=== PATIENT | female | born 1930 | race Two or more races ===

== ENCOUNTER 2019-01-15 18:47 | Inpatient (IN) | payer MEDICARE, MEDICAID ==
[~2019-01-15] VITALS: Ht 165.1 cm; Wt 49.0 kg
[2019-01-15] MEDS ORDERED: OLANZAPINE 10 MG VIAL IM ONE ×2 (19:00→19:12)
--- NOTE | 2019-01-15 19:00 | NUR ---
Medically cleared by DR Glover
--- NOTE | 2019-01-15 19:09 | NUR ---
hands off report given to incoming rn.
[2019-01-15] MEDS ORDERED: CARV3.12 PO (19:12)
[2019-01-15] MEDS ORDERED: ESCI20TA PO (19:12)
--- NOTE | 2019-01-15 19:37 | NUR ---
Patient sleeping on gurny with no distress noted
--- NOTE | 2019-01-15 19:44 | NUR ---
Patient trasnported to [facility]HU in stable condition. Report given to HOANG Yu
[2019-01-15] MEDS ORDERED: LORAZEPAM 1 MG TABLET PO PRN (20:00)
[2019-01-15] MEDS ORDERED: TEMAZEPAM 7.5 MG CAPSULE PO PRN (20:00)
[2019-01-15] MEDS ORDERED: MAGNESIUM HYDROXIDE 30 ML LIQUID UDC PO PRN (20:00)
[2019-01-15] MEDS ORDERED: MAG HYDROX/AL HYDROX/SIMETH 30 ML LIQUID UDC PO PRN (20:00)
[2019-01-15] MEDS ORDERED: ACETAMINOPHEN 325 MG TABLET PO PRN (20:00)
--- NOTE | 2019-01-15 20:15 | NUR ---
Dr Martin You paged through [facility] regarding elevated BP and medication reconciliation. Awaiting call back.
--- NOTE | 2019-01-15 21:06 | NUR ---
Dr You paged again through [facility] regarding Pt's elevated BP and med recon. Awaiting response.
[2019-01-15] MEDS ORDERED: CLONIDINE TTS 2 PATCH TD SCH (21:25)
[2019-01-15] MEDS ORDERED: CLONIDINE TTS 2 PATCH TD ONE (22:23)
--- NOTE | 2019-01-15 23:53 | NUR ---
Admission note: Received patient earlier from the ED dept. Via gurney. Asleep but easily aroused. Patients initial B/P was elevated at that time. MD was notified and orders received for medication. After delivery of medication, patients B/P upon recheck is 126/64. Patient is in bed sleeping. No acute distress noted at this time. Patient is confused and being monitored closely for safety. No acting out or non compliance observed .
[2019-01-16 07:30] VITALS: BP 146/67
[2019-01-16 15:30] VITALS: BP 132/55
[2019-01-16] MEDS: CARVEDILOL 3.125 MG TABLET PO SCH (17:08)
--- NOTE | 2019-01-16 17:25 | NUR ---
GPS: RECEIVED PATIENT AOX1, PATIENT CALM AND COOPERATIVE, IN NO DISTRESS AT THIS TIME, SEEN CRYING IN HER ROOM, REDIRECT PATIENTS ATTENTION, AND PATIENT STARTED TO CALM DOWN, SEEN AND EXAMINED BY DR. GILLESPIE WITH ORDERS MADE AND CARRIED OUT, WILL CONTINUE TO MONITOR
[2019-01-16 20:23] VITALS: BP 167/67
[2019-01-16] MEDS: QUETIAPINE FUMARATE 25 MG TABLET PO SCH (20:44)
[2019-01-16] MEDS: CEphaleXIN 500 MG CAPSULE PO SCH (22:07)
[2019-01-17] MEDS: CEphaleXIN 500 MG CAPSULE PO SCH ×3 (06:13→21:42)
[2019-01-17 07:30] VITALS: BP 196/98
[2019-01-17] MEDS: CARVEDILOL 3.125 MG TABLET PO SCH ×2 (08:00→18:00)
[2019-01-17] MEDS: ESCITALOPRAM OXALATE 10 MG TABLET PO SCH (09:00)
[2019-01-17 11:52] VITALS: BP 174/83
--- NOTE | 2019-01-17 12:30 | NUR ---
Gps/Wool Sampler- Patients' grandchildren in to visit patient, informed patient continues refusal of her routine medications prescribed.Per family patient verbalized paranoia. Meds reoffered in front of the of her family, reviewed one by one, patient still refused, and verbalized anger with angry tone of voice in Japanese. Per grand daughter pt. was taking "clonopin " before and it seems like helping her.
--- NOTE | 2019-01-17 18:49 | NUR ---
Gps/Delivery Department Supervisor- Patient continue to refused routine medications prescribed, re offered couple of times ,pt. refused, claimed will not take any medications from from us. Informed family patient continued to refused medications.
[2019-01-17 20:00] VITALS: BP 233/92
[2019-01-17] MEDS ORDERED: CLONIDINE TTS 2 PATCH TD SCH (20:00)
--- NOTE | 2019-01-17 20:15 | NUR ---
RECEIVED PATIENT IN HER ROOM IN BED. SHE IS NOTED AWAKE, A/O X 3. SHE IS NOTED WITH LOW MOOD, WITHDRAWN, DELUSIONAL, FORGETFUL. IMPAIRED INSIGHT AND JUDGMENT IS NOTED TO THE REASON FOR HER ADMISSION TO MHU. SHE IS NOTED CRYING, SHE STATED, "I KNOW MYLENE IS , WHY SHE HAD TO , I DID NOT WANT HER TO . WHY SHE IS GONE". PATIENT WAS REASSURED AND REDIRECTED. IT WAS ALSO NOTED THAT HER BLOOD PRESSURED IS 200/90MMHG. ACCORDING TO MAYRA, PATIENT WAS GIVEN CATAPRES PATCH 2 DAYS AGO; HOWEVER, AFTER A HEAD TO TOE ASSESSMENT, NO PATCH WAS FOUND ON HER BODY. NEW PATCH CATAPRES 0.2MG TOPICAL WAS APPLIED ON HER RIGHT DELTOID. PATIENT WAS REASSURED FOR HER SAFETY. SAFETY AND FALL PRECAUTION ARE IN PLACE. WILL CONTINUE TO MONITOR.
[2019-01-17] MEDS: QUETIAPINE FUMARATE 25 MG TABLET PO SCH (21:42)
[2019-01-17 21:45] VITALS: BP 140/80
--- NOTE | 2019-01-17 22:00 | NUR ---
PATIENT B/P IS 130/84MMHG AND PULSE 64. PT IS IN NO DISTRESS, RESTING COMFORTABLE IN HER ROOM IN BED. WILL CONTINUE TO MONITOR.
[2019-01-18 00:30] VITALS: BP 130/84
[2019-01-18] MEDS: CEphaleXIN 500 MG CAPSULE PO SCH ×3 (06:50→22:21)
[2019-01-18] MEDS: CARVEDILOL 3.125 MG TABLET PO SCH ×2 (08:00→18:00)
[2019-01-18] MEDS: ESCITALOPRAM OXALATE 10 MG TABLET PO SCH (08:56)
--- NOTE | 2019-01-18 13:00 | NUR ---
Gps/Cherry Picker Operator- Patients' daughter and grandson in to vist, requesting possibility to talk to Cement Mason Helper , and wants to attend the Court hearing whenever possible.
--- NOTE | 2019-01-18 17:00 | NUR ---
Gps/Desk Clerks Supervisor-Patient took pm routine seroquel 25 mg po, but refused coreg., unable to administer anyways pt. was refusing vital signs check(B/P)
[2019-01-18] MEDS: QUETIAPINE FUMARATE 25 MG TABLET PO SCH (18:09)
[2019-01-18 20:00] VITALS: BP 196/83
[2019-01-18 23:51] VITALS: BP 132/80
[2019-01-19] MEDS: CEphaleXIN 500 MG CAPSULE PO SCH ×3 (06:00→22:00)
[2019-01-19] MEDS: CARVEDILOL 3.125 MG TABLET PO SCH ×2 (08:00→17:43)
[2019-01-19] MEDS: QUETIAPINE FUMARATE 25 MG TABLET PO SCH ×3 (09:00→17:32)
[2019-01-19] MEDS: ESCITALOPRAM OXALATE 10 MG TABLET PO SCH (09:00)
--- NOTE | 2019-01-19 20:00 | NUR ---
RECEIVE PATIENT IN HER ROOM IN BED, SHE IS NOTED AWAKE A/O X 2. UKRAINIAN SPEAKER. SHE IS ABLE TO AMBULATE WITH STEADY GAIT AND ABLE TO MAKE HER NEEDS KNOWN. SHE IS NOTED EASILY IRRITABLE, TANGENTAL, GUARDED, UNCOOPERATIVE AND REFUSING V/S. MULTIPLE REDIRECTION GIVEN; HOWEVER, INEFFECTIVE. PATIENT IS REASSURE FOR HER SAFETY. SAFETY AND FALL PRECAUTION ARE IN PLACE. WILL CONTINUE TO MONITOR.
--- NOTE | 2019-01-19 22:00 | NUR ---
PATIENT IS REFUSING KEFLEX 500MG. SHE ALSO CONTINUE REFUSING V/S SHE IS NOTED IRRITABLE, GUARDED AND SUSPICIOUS. SHE ASKED FOR TYLENOL FOR LOWER BACK PAIN; HOWEVER, WHEN MEDICATION WAS PRESENTED TO HER SHE STATED, "NO, THAT IS NOT TYLENOL, I DON'T WANT THAT MEDICATION, YOU WANT TO GIVEN ME SOMETHING ELSE!!!" THEN PATIENT THREW THE PILLS ON THE FLOOR. PATIENT WAS REDIRECTED. PT WAS EXPLAINED BENEFITS VS RISK OF MEDICATION AND THE IMPORTANCE TO COMPLY WITH MEDICATION REGIMENT. HOWEVER, SHE REFUSED TYLENOL, V/S AND KEFLEX. WILL CONTINUE TO MONITOR.
[2019-01-20] MEDS: CEphaleXIN 500 MG CAPSULE PO SCH ×3 (06:00→21:21)
--- NOTE | 2019-01-20 07:02 | NUR ---
PATIENT SLEPT FOR APPROX 7.0 HRS THROUGH THE NIGHT. SHE REFUSED KEFLEX, SHE REFUSED BLOOD DRAWN. SHE TOOK HER CATAPRES PATCH OFF AND REFUSED TO PUT IT BACK. SHE IS NOTED EASILY IRRITABLE, DEMANDING, TANGENTIAL, ARGUMENTATIVE. MULTIPLE REDIRECTION GIVEN. BENEFITS VS RISK OF MEDICATION COMPLIANT WERE GIVEN BUT CONTINUE REFUSING. WILL CONTINUE TO MONITOR.
[2019-01-20] MEDS: CARVEDILOL 3.125 MG TABLET PO SCH ×2 (08:00→17:47)
[2019-01-20] MEDS: QUETIAPINE FUMARATE 25 MG TABLET PO SCH ×2 (08:52→17:46)
[2019-01-20] MEDS: ESCITALOPRAM OXALATE 10 MG TABLET PO SCH (08:55)
--- NOTE | 2019-01-20 09:51 | NUR ---
Gps/Senior Hardware Engineer- Refused to take routine am meds. except seroquel, making sign of the cross before taking med. Easily gets upset/irritability noted. Encouraged to attend her group therapy. Ambulates around , suspicious /paranoid behavior.
--- NOTE | 2019-01-20 18:15 | NUR ---
Gps/Commercial Fisher-Called [facility] Pharmacist, clarified on what to do w/ TTS patch fell off, found on the floor by Noc. Nurse. assigned to patient. Per Dariana Shaw STRE[address] LIGHT CLEANER needed to check with Pharmacy as to when to apply patch .
[2019-01-20] MEDS: CLONIDINE TTS 2 PATCH TD SCH (18:30)
--- NOTE | 2019-01-20 21:22 | NUR ---
Several attempts to convinced patient to have her BP checked failed for the administration of Catapres patch and routine VS. Refused medications due as well. Charge nurse aware.
[2019-01-21] MEDS: CEphaleXIN 500 MG CAPSULE PO SCH ×2 (06:00→14:00)
--- NOTE | 2019-01-21 06:43 | NUR ---
Patient very uncooperaive with care. Continue to refused to have her BP checked and oral medications. Cataprest patch not given as ordered. No BP reading done. Patient kept refusing to have it despite explaining the risk and benefits. Incontinent of bladder but ambulatory to the BR when she feel like it. No complaint of pain/dsiscomforts. No significant event reported all night. Continue current plan of care.
[2019-01-21] MEDS: CARVEDILOL 3.125 MG TABLET PO SCH ×2 (08:00→18:00)
[2019-01-21] MEDS: ESCITALOPRAM OXALATE 10 MG TABLET PO SCH (09:00)
[2019-01-21] MEDS: QUETIAPINE FUMARATE 25 MG TABLET PO SCH ×2 (09:00→17:00)
[2019-01-21] MEDS ORDERED: CLONIDINE HCL 0.1 MG TABLET PO PRN (13:00)
[2019-01-22] MEDS: CARVEDILOL 3.125 MG TABLET PO SCH ×2 (08:00→17:10)
[2019-01-22] MEDS: QUETIAPINE FUMARATE 25 MG TABLET PO SCH ×3 (08:59→17:09)
[2019-01-22] MEDS: ESCITALOPRAM OXALATE 10 MG TABLET PO SCH (08:59)
--- NOTE | 2019-01-22 17:52 | NUR ---
GPS: received patient alert oriented x1, patient confused ,calm in her room, however refused oral medication, patient also refused her vital sign, denies pain, and seen eating her meal seen and examined by Dr. Rodriguez, family visit during lunch time, tried giving her oral medication, patient refused even after explaining the benefits of the medication, will continue monitor
[2019-01-23] MEDS: QUETIAPINE FUMARATE 25 MG TABLET PO SCH ×2 (09:00→17:00)
[2019-01-23] MEDS: ESCITALOPRAM OXALATE 10 MG TABLET PO SCH (09:00)
[2019-01-23] MEDS: CARVEDILOL 3.125 MG TABLET PO SCH ×2 (09:00→18:00)
--- NOTE | 2019-01-23 13:08 | NUR ---
Appeal Discussion with Family SW informed Grandson Calixto [[phone]] of appeal rights and provided with information for [place] [[employer] Appeals;[phone]] due to Dr. Rodriguez anticipating likely discharge for patient on Monday, and Calixto not in favor of discharge.
--- NOTE | 2019-01-23 16:20 | NUR ---
FIREARMS REPORT: Operations Support Professionals completed and submitted a [employer] firearms report for [address] Disability certification. A copy of report has been placed in patient chart.
--- NOTE | 2019-01-23 17:04 | NUR ---
gps: received patient aox1, sitting in her room, isolative and withdrawn, patient increasingly paranoid,refused all her oral medication, MD and resp. republican aware, patient seen crying in her room, offered medication and educated patient regarding the benefits of her medication, patient still refused her medication, patient granddarvin king visited during lunch time, offered meds , patient still refused , [place] petition was filed to court, patient made aware, will continue monitor patient
--- NOTE | 2019-01-24 06:19 | NUR ---
Patient refused shower this am. Patient also is refusing staff to take any VS. Patient slept 7 hours last night.
[2019-01-24] MEDS: CARVEDILOL 3.125 MG TABLET PO SCH ×2 (08:00→18:00)
[2019-01-24] MEDS: ESCITALOPRAM OXALATE 10 MG TABLET PO SCH (08:50)
[2019-01-24] MEDS: QUETIAPINE FUMARATE 25 MG TABLET PO SCH ×2 (08:51→16:37)
[2019-01-24] MEDS: CEphaleXIN 500 MG CAPSULE PO SCH ×2 (09:15→20:58)
--- NOTE | 2019-01-24 09:21 | NUR ---
Patient refuse medicine despite of encouragement and education.
[2019-01-24 10:34] LABS: BASOPHILS % (AUTO) 0.8 % (0.0-2.0); EOSINOPHILS # (AUTO) 0.1 K/uL (0.0-0.7); EOSINOPHILS % (AUTO) 2.6 % (0.0-7.0); HEMATOCRIT 35.8 % (31.2-41.9); LYMPHOCYTES # (AUTO) 1.5 K/uL (20.0-40.0); LYMPHOCYTES % (AUTO) 29.6 % (20.5-51.5); MEAN CORPUSCULAR HEMOGLOBIN 33.5 uug (24.7-32.8); MEAN CORPUSCULAR HGB CONC 34 g/dL (32.3-35.6); MEAN CORPUSCULAR VOLUME 99.6 fL (75.5-95.3); MONOCYTES # (AUTO) 0.5 K/uL (2.0-10.0); MONOCYTES % (AUTO) 10.3 % (0.0-11.0); NEUTROPHILS # (AUTO) 2.9 K/uL (1.8-8.9); NEUTROPHILS % (AUTO) 56.7 % (38.5-71.5); PLATELET COUNT (AUTO) 214 K/uL (179-408); WHITE BLOOD COUNT (AUTO) 5.1 K/uL (3.8-11.8)
[2019-01-24 10:47] LABS: ALANINE AMINOTRANSFERASE 18 U/L (14-59); ALKALINE PHOSPHATASE 71 U/L (50-136); ASPARTATE AMINOTRANSFERASE 16 U/L (15-37); BILIRUBIN,TOTAL 0.3 mg/dL (0.2-1.0); CARBON DIOXIDE 26 mmol/L (21-32); CHLORIDE 109 mmol/L (98-107); CREATININE 1.1 mg/dL (0.6-1.3); GLUCOSE 84 mg/dL (74-106); MAGNESIUM 2.2 mg/dL (1.8-2.4); PHOSPHOROUS 3.4 mg/dL (2.5-4.9); POTASSIUM 3.9 mmol/L (3.5-5.1); TOTAL PROTEIN, SERUM 6.4 g/dL (6.4-8.2); UREA NITROGEN, BLOOD 28 mg/dL (7-18)
[2019-01-24 10:57] LABS: THYROID STIMULATING HORMONE 3.688 mIU/mL (0.358-3.740)
--- NOTE | 2019-01-24 12:10 | NUR ---
Update discharge plan Dr. Rodriguez cancelled decision for possible discharge for Monday due to patient having a current UTI. SW informed pt's granddaughter, Eli [[phone]] that pt will not be discharged Monday. Eli stated that family will not file for an appeal as patient will continue the stay in the hospital.
--- NOTE | 2019-01-24 23:21 | NUR ---
PATIENT RECEIVED IN BED , AOX1, AND CONFUSED. PATIENT REFUSED HER MEDICATION, VITAL SIGNS. PATIENT IS ISOLATIVE/WITHDRAWN DENIES SI/HI WILL CONTINUE TO MONITOR. BED IN LOWEST POSITION WITH ALARM ON WHILE IN BED. PATIENT DENIES PAIN AT THIS TIME, WILL CONINTUE TO MONITOR.
[2019-01-25] MEDS: CARVEDILOL 3.125 MG TABLET PO SCH ×2 (08:00→17:39)
[2019-01-25] MEDS: CEFTRIAXONE 1 G VIAL IM SCH ×2 (09:00→09:10)
[2019-01-25] MEDS: QUETIAPINE FUMARATE 25 MG TABLET PO SCH (09:00)
[2019-01-25] MEDS: ESCITALOPRAM OXALATE 10 MG TABLET PO SCH (09:00)
[2019-01-25] MEDS ORDERED: OLANZAPINE 10 MG VIAL IM PRN (16:30)
--- NOTE | 2019-01-25 18:11 | NUR ---
Patient continues to be noncompliant with care throughout shift. Patient refuses medications and blood pressure monitoring. Patient isolates self in room, and argues that she doesn't have her medications, and will not let anyone check her blood pressure because the machine doesn't work and is persistently demanding salt on her meals.
[2019-01-25] MEDS ORDERED: OLANZAPINE ZYDIS 5 MG TAB.RAPDIS PO SCH (21:00)
[2019-01-26 07:30] VITALS: BP 158/83
[2019-01-26] MEDS: CARVEDILOL 3.125 MG TABLET PO SCH ×2 (08:00→17:07)
[2019-01-26] MEDS: ESCITALOPRAM OXALATE 10 MG TABLET PO SCH (08:56)
[2019-01-26] MEDS: CEFTRIAXONE 1 G VIAL IM SCH (09:00)
[2019-01-26] MEDS: OLANZAPINE ZYDIS 5 MG TAB.RAPDIS PO SCH ×2 (13:45→21:00)
[2019-01-26] MEDS: OLANZAPINE 10 MG VIAL IM PRN ×2 (13:57→21:28)
[2019-01-26] MEDS: CEphaleXIN 500 MG CAPSULE PO SCH (17:00)
--- NOTE | 2019-01-26 17:54 | NUR ---
GPS: receieved patient aox1, patient non compliant with medication, refuse even her atb for uti, patient on RIESE, prn meds given as ordered, patientcalm and stayed in her room , denies pain, denies SI and HI, will continue monitor
--- NOTE | 2019-01-26 19:30 | NUR ---
PATIENT RECEIVED IN BED , ASLEEP, BED IN LOWEST POSITION WITH ALARM ON WHILE IN BED. WILL CONTINUE TO MONITOR FOR PATIENT SAFETY.
--- NOTE | 2019-01-27 06:43 | NUR ---
patient remain calm, slept intermediately throughout the night, med compliant, bed remain in the lowest position, call light within reach, will continue to monitor patient safety. Addendum: 01/27/19 at 0703 by ARABELLA GALLARDO RN correction patient of above charting. patient non compliant with her medication. medicated per milagros and undercover agent's order.
[2019-01-27 07:36] VITALS: BP 179/76
[2019-01-27] MEDS: CARVEDILOL 3.125 MG TABLET PO SCH ×2 (08:00→17:01)
[2019-01-27] MEDS: CEphaleXIN 500 MG CAPSULE PO SCH ×2 (08:50→17:00)
[2019-01-27] MEDS: ESCITALOPRAM OXALATE 10 MG TABLET PO SCH (08:50)
[2019-01-27] MEDS: OLANZAPINE ZYDIS 5 MG TAB.RAPDIS PO SCH ×2 (08:51→20:48)
[2019-01-27] MEDS: OLANZAPINE 10 MG VIAL IM PRN (09:00)
[2019-01-27] MEDS: CLONIDINE TTS 2 PATCH TD SCH (18:08)
--- NOTE | 2019-01-27 18:35 | NUR ---
patient continue refused all po medication , patient on riese IM was given as ordered/
--- NOTE | 2019-01-27 19:39 | NUR ---
Received patient in bed, family was at bedside. Patient is A/Ox1, Citizen Of [place] speaking, pleasant when approached. Will continue to monitor.
[2019-01-27] MEDS: HALOPERIDOL LACTATE 5 MG/1 ML VIAL IM PRN (20:48)
--- NOTE | 2019-01-28 05:43 | NUR ---
Patient refused PO medication, IM given as ordered. Patient was aggressive when trying to administer IM,, trying to hit staff. Tolerated IM well and slept most of shift.
[2019-01-28] MEDS: CARVEDILOL 3.125 MG TABLET PO SCH ×2 (08:00→17:01)
[2019-01-28] MEDS: CEphaleXIN 500 MG CAPSULE PO SCH ×2 (08:42→16:37)
[2019-01-28] MEDS: OLANZAPINE ZYDIS 5 MG TAB.RAPDIS PO SCH ×2 (08:42→20:05)
[2019-01-28] MEDS: ESCITALOPRAM OXALATE 10 MG TABLET PO SCH (08:42)
[2019-01-28] MEDS: HALOPERIDOL LACTATE 5 MG/1 ML VIAL IM PRN (08:43)
[2019-01-28] MEDS ORDERED: HALOPERIDOL LACTATE 5 MG/1 ML VIAL IM PRN (17:30)
--- NOTE | 2019-01-28 20:15 | NUR ---
RECEIVED PATIENT IN HER ROOM IN BED. SHE IS NOTED AWAKE A/O X 2. WITHDRAWN, CONFUSED, FORGETFUL, LOW MOOD, SAD FACIAL EXPRESSION; HOWEVER, SHE DENIES SI. POOR HISTORIAN. POOR INSIGHT AND JUDGMENT NOTED INTO THE REASON FOR HER ADMISSION TO [facility]. PATIENT REFUSED V/S BUT WAS ABLE TO COMPLY WITH [facility] MEDICATION: ZYPREXA 5MG PO. PATIENT WAS REASSURED FOR HER SAFETY. SAFETY AND FALL PRECAUTION ARE IN PLACE. WILL CONTINUE TO MONITOR.
[2019-01-29] MEDS: CARVEDILOL 3.125 MG TABLET PO SCH ×2 (08:00→18:00)
[2019-01-29] MEDS: ESCITALOPRAM OXALATE 10 MG TABLET PO SCH (08:07)
[2019-01-29] MEDS: CEphaleXIN 500 MG CAPSULE PO SCH ×2 (08:07→16:27)
[2019-01-29] MEDS: OLANZAPINE ZYDIS 5 MG TAB.RAPDIS PO SCH ×2 (08:13→20:09)
--- NOTE | 2019-01-29 21:19 | NUR ---
Patient received in bed, depressed, trying to sleep. With use of Mexican speaking nurse, patient was willing to take the oral medication Zyprexa. No need for the IM injection at this time. Continuing to monitor for safety. No acute distress noted.
[2019-01-30] MEDS: CARVEDILOL 3.125 MG TABLET PO SCH ×2 (08:00→17:06)
[2019-01-30] MEDS: OLANZAPINE ZYDIS 5 MG TAB.RAPDIS PO SCH ×2 (09:00→20:43)
[2019-01-30] MEDS: ESCITALOPRAM OXALATE 10 MG TABLET PO SCH (09:00)
[2019-01-30] MEDS: CEphaleXIN 500 MG CAPSULE PO SCH ×2 (09:00→17:00)
[2019-01-30] MEDS ORDERED: HALOPERIDOL DECANOATE 50 MG/1 ML AMPUL IM ONE (15:00)
[2019-01-30 17:06] VITALS: BP 176/76
--- NOTE | 2019-01-30 18:06 | NUR ---
GPS: received patient aox1, patient denies SI and HI, patient refuses oral medication, tried offering multiple times throughout the day,
--- NOTE | 2019-01-30 21:28 | NUR ---
PATIENT RECEIVED IN BED AWAKE AOX1. PATIENT COMPLAINT WITH MEDICATION. PATIENT REMAINS ISOLATIVE WITHDRAWN DENIES SI/HI WILL CONTINUE TO MONITOR. BED IN LOWEST POSITION, BED LOCKED, AND BED ALARM ON WHILE IN BED. PATIENT DENIES PAIN AT THIS TIME, WILL CONTINUE TO MONITOR.
[2019-01-31] MEDS: CARVEDILOL 3.125 MG TABLET PO SCH (08:00)
[2019-01-31] MEDS: OLANZAPINE ZYDIS 5 MG TAB.RAPDIS PO SCH (08:54)
[2019-01-31] MEDS: ESCITALOPRAM OXALATE 10 MG TABLET PO SCH (08:54)
[2019-01-31] MEDS: CEphaleXIN 500 MG CAPSULE PO SCH (08:54)
--- NOTE | 2019-01-31 10:39 | NUR ---
Discharge note Patient will be discharged back home [[id number] [address] [place] [address]; [phone]]. Pt�s grandsonCalixto [[phone]] is aware of discharge plans and will be picking up patient and transporting her back home at 2pm. Pt�s daughter, Mirna Eugene [[phone]] aware and agreeable of discharge plans. Patient aware and agreeable of discharge plans. SW made an initial Psychiatrist appointment for patient at [facility] with Dr. Yokasta Francis [[id number] [place] [address]; ] on February 01, 2019 at 10:30am. Patient will follow up with primary care physician: Carmelo Patterson MD at [facility] [[address], [place] [address]; ]. Patient was provided with referrals to [facility] ; [facility] Crisis Line ; [facility] National Suicide Prevention Lifeline .
--- NOTE | 2019-01-31 13:32 | NUR ---
Update Discharge note KELSEY followed up with family discharge cotton picker time, patient's granddaughter, Ani [[phone]] requested patient to be placed in jail facility. KELSEY followed up with [facility] [Delisa, admin coordinator; [phone]] and patient was accepted to admit today. KELSEY followed up with Ani (granddaughter), family decided to take patient home. Family will cotton picker patient at 5pm today.
--- NOTE | 2019-01-31 16:20 | NUR ---
Gps/Director Toxicology- Patient's family( grandson and granddaughter Ani) in to pickling machine operator patient. All belongings given back to family. Reviewed medications/prescriptions, diet, safety, skin care , follow up with Psychiatrist as recommended and as arranged by Proposal Analyst. Both patient and family verbalized understanding.
--- NOTE | 2019-01-31 16:45 | NUR ---
Gps/Mechanical Technical Service Specialist Offered to give her routine medications due this pm, family and patient refused, will take at home . All belongings given back, including patient's own meds. she came in with, w/c kept in the Pharmacy . Patient appeared to be in good spirit, verbalized she is happy to go home. Discharged to home via private car.
== END 2019-01-31 17:02 | disposition home or self-care (01) | DRG 885 ==
LOC: ER 18:52 → GPS 19:38
PROVIDERS: ADMIT Psychiatry & Neurology Psychiatry; ATTEND Registered Nurse
DX: F39 Unspecified mood [affective] disorder (principal); N39.0 Urinary tract infection, site not specified; F03.91 Unspecified dementia, unspecified severity, with behavioral disturbance; I10 Essential (primary) hypertension; F41.9 Anxiety disorder, unspecified; F22 Delusional disorders; Z91.14 Patient's other noncompliance with medication regimen
CPT/HCPCS: 36415; 83735; 84100; 84443; 85025; A4663; J0696; J1630; J1631; J2358